=== PATIENT | female | born 1995 | race Caucasian/White ===

== ENCOUNTER 2024-01-05 19:48 | Emergency (ER) | payer MEDICAID ==
[~2024-01-05] VITALS: Ht 154.9 cm; Wt 113.4 kg
[2024-01-05 19:55] VITALS: BP 119/66; PULSE 90; RESP 17; TEMP 97.8; O2SAT 99
[2024-01-05 20:37] LABS: BASOPHILS % (AUTO) 0.4 % (0.0-2.0); EOSINOPHILS % (AUTO) 0.2 % (0.0-4.0); HEMOGLOBIN 12.8 g/dL (12.0-16.0); LYMPHOCYTES # (AUTO) 2.6 K/uL (2.5-16.5); LYMPHOCYTES % (AUTO) 28.1 % (20.5-51.1); MEAN CORPUSCULAR HEMOGLOBIN 31 pg (27-31); MEAN CORPUSCULAR HGB CONC 34 g/dL (33-37); MEAN CORPUSCULAR VOLUME 92.4 fL (80-94); MONOCYTES # (AUTO) 0.5 K/uL (0.8-1.0); MONOCYTES % (AUTO) 5.3 % (1.7-9.3); PLATELET COUNT (AUTO) 327 K/uL (140-450); RED BLOOD CELL COUNT(AUTO) 4.12 MIL/uL (4.20-5.40); RED CELL DISTRIBUTION WIDTH 12.6 % (11.6-13.7); WHITE BLOOD COUNT (AUTO) 9.1 K/uL (4.8-10.8)
[2024-01-05 20:50] VITALS: O2SAT 98
[2024-01-05 20:56] LABS: POTASSIUM 4.5 mmol/L (3.5-5.1)
[2024-01-05 20:57] LABS: ANION GAP 11.9 (8-16); CALCIUM 8.6 mg/dL (8.5-10.1); CARBON DIOXIDE 25.6 mmol/L (21-32); CREATININE 0.6 mg/dL (0.6-1.3)
[2024-01-05 20:58] LABS: BILIRUBIN,DIRECT 0.1 mg/dL (0.0-0.3); TOTAL BILIRUBIN 0.4 mg/dL (0.0-1.0)
[2024-01-05 20:59] LABS: ALBUMIN 3.9 g/dL (3.4-5.0); TOTAL PROTEIN, SERUM 7.6 g/dL (6.4-8.2)
[2024-01-05 21:17] LABS: APPEARANCE,URINE CLEAR (CLEAR); BILIRUBIN,URINE NEGATIVE (NEGATIVE); BLOOD, URINE NEGATIVE (NEGATIVE); COLOR,URINE YELLOW (YELLOW); LEUKOCYTE ESTERASE ,URINE NEGATIVE (NEGATIVE); NITRITE, URINE NEGATIVE (NEGATIVE); PROTEIN,URINE NEGATIVE (NEGATIVE); UGLUCOSE NEGATIVE (NEGATIVE); UROBILINOGEN,URINE 0.2 EU/dL (0.2 - 1)
[2024-01-05] MEDS: NACL 0.9% 1,000 ML IV ONE (21:59)
[2024-01-05 22:00] VITALS: BP 120/85; PULSE 96; RESP 17; TEMP 97.8
[2024-01-05] MEDS: ONDANSETRON 4 MG/2 ML VIAL IVP ONE (22:00)
[2024-01-05] MEDS: DICYCLOMINE HCL LIQUID 10 MG/5 ML UDC PO ONE (22:07)
[2024-01-05] MEDS: MORPHINE SULFATE 4 MG/ML SYR IVP ONE (22:07)
[2024-01-05 23:35] VITALS: O2SAT 98
[2024-01-06] MEDS: HYDROcodone/APAP 5/325 MG 1 TAB TAB PO ONE (00:03)
== END 2024-01-06 00:06 | disposition home or self-care (01) ==
LOC: MED 19:48
DX: G89.29 Other chronic pain (principal); R10.32 Left lower quadrant pain; R11.2 Nausea with vomiting, unspecified; Z90.49 Acquired absence of other specified parts of digestive tract
CPT/HCPCS: 36415; 74176; 80048; 80076; 81003; 81025; 83690; 85025; 96361; 96374; 96375; 99285; J2270; J2405

== ENCOUNTER 2024-01-12 20:54 | Emergency (ER) | payer MEDICAID ==
[~2024-01-12] VITALS: Ht 154.9 cm; Wt 99.8 kg
[2024-01-12 21:23] VITALS: BP 126/77; PULSE 119; RESP 18; TEMP 98.4; O2SAT 99
[2024-01-12 21:57] VITALS: O2SAT 95
[2024-01-12 22:05] VITALS: BP 117/76; PULSE 120; RESP 20; TEMP 98.4; O2SAT 95
[2024-01-12] MEDS ORDERED: FAMO-92 PO (22:47)
== END 2024-01-12 22:55 | disposition home or self-care (01) ==
LOC: MED 20:54
DX: K29.70 Gastritis, unspecified, without bleeding (principal); Z90.49 Acquired absence of other specified parts of digestive tract; Z79.899 Other long term (current) drug therapy
CPT/HCPCS: 81002; 81025; 99282

== ENCOUNTER 2024-04-18 16:27 | Emergency (ER) | payer MEDICAID ==
[~2024-04-18] VITALS: Ht 154.9 cm; Wt 95.0 kg
[~2024-04-18 16:27] MED LIST: FAMO-92 PO
[2024-04-18 16:33] VITALS: BP 110/71; PULSE 99; RESP 16; TEMP 97.6; O2SAT 96
[2024-04-18 17:08] LABS: APPEARANCE,URINE CLEAR (CLEAR); BILIRUBIN,URINE NEGATIVE (NEGATIVE); BLOOD, URINE NEGATIVE (NEGATIVE); COLOR,URINE YELLOW (YELLOW); LEUKOCYTE ESTERASE ,URINE NEGATIVE (NEGATIVE); NITRITE, URINE NEGATIVE (NEGATIVE); UGLUCOSE NEGATIVE (NEGATIVE); UROBILINOGEN,URINE 0.2 EU/dL (0.2 - 1)
[2024-04-18 17:13] LABS: PROTEIN,URINE NEGATIVE (NEGATIVE)
[2024-04-18 17:21] LABS: BASOPHILS % (AUTO) 0.2 % (0.0-2.0); EOSINOPHILS % (AUTO) 0.2 % (0.0-4.0); HEMATOCRIT 33.4 % (36-48); LYMPHOCYTES # (AUTO) 1.6 K/uL (2.5-16.5); LYMPHOCYTES % (AUTO) 19.3 % (20.5-51.1); MEAN CORPUSCULAR HEMOGLOBIN 30 pg (27-31); MEAN CORPUSCULAR HGB CONC 33 g/dL (33-37); MEAN CORPUSCULAR VOLUME 91.2 fL (80-94); MONOCYTES # (AUTO) 0.4 K/uL (0.8-1.0); MONOCYTES % (AUTO) 4.9 % (1.7-9.3); NEUTROPHILS # (AUTO) 6.2 K/uL (1.8-7.7); NEUTROPHILS % (AUTO) 75.4 % (42.2-75.2); PLATELET COUNT (AUTO) 277 K/uL (140-450); RED BLOOD CELL COUNT(AUTO) 3.66 MIL/uL (4.20-5.40); RED CELL DISTRIBUTION WIDTH 13.2 % (11.6-13.7); WHITE BLOOD COUNT (AUTO) 8.2 K/uL (4.8-10.8)
[2024-04-18] MEDS: ONDANSETRON 4 MG/2 ML VIAL IVP ONE (17:21)
[2024-04-18] MEDS: KETOROLAC 30 MG/ML VIAL IVP ONE (17:21)
[2024-04-18] MEDS: NACL 0.9% 1,000 ML IV SCH (17:22)
[2024-04-18 17:30] LABS: ANION GAP 12.3 (8-16); CALCIUM 8.4 mg/dL (8.5-10.1); CARBON DIOXIDE 25.5 mmol/L (21-32); CREATININE 0.6 mg/dL (0.6-1.3); POTASSIUM 3.8 mmol/L (3.5-5.1)
[2024-04-18 17:36] LABS: ALBUMIN 3.2 g/dL (3.4-5.0); BILIRUBIN,DIRECT 0.1 mg/dL (0.0-0.3); TOTAL BILIRUBIN 0.2 mg/dL (0.0-1.0); TOTAL PROTEIN, SERUM 6.4 g/dL (6.4-8.2)
[2024-04-18] MEDS: MORPHINE SULFATE 4 MG/ML SYR IVP ONE (17:49)
[2024-04-18] MEDS ORDERED: ONDA8TAB87 PO (18:46)
[2024-04-18] MEDS ORDERED: IBUP-2213 PO (18:46)
[2024-04-18] MEDS ORDERED: ACET-8905 PO (18:46)
[2024-04-18 19:06] VITALS: BP 110/71; PULSE 99; RESP 16; TEMP 97.6; O2SAT 96
== END 2024-04-18 19:05 | disposition home or self-care (01) ==
LOC: MED 16:27
DX: R10.31 Right lower quadrant pain (principal); R11.2 Nausea with vomiting, unspecified; R19.7 Diarrhea, unspecified; Z90.49 Acquired absence of other specified parts of digestive tract; Z98.890 Other specified postprocedural states; Z79.899 Other long term (current) drug therapy
CPT/HCPCS: 36415; 74176; 80048; 80076; 81003; 81025; 83690; 85025; 96361; 96374; 96375; 99285; J1885; J2270; J2405; J7030

== ENCOUNTER 2024-04-30 15:12 | Emergency (ER) | payer MEDICAID ==
[~2024-04-30] VITALS: Ht 154.9 cm; Wt 93.0 kg
[~2024-04-30 15:12] MED LIST changes: +ACET-8905 PO; +IBUP-2213 PO; +ONDA8TAB87 PO
[2024-04-30 15:43] VITALS: BP 94/63; PULSE 104; RESP 19; TEMP 98.1; O2SAT 97
--- NOTE | 2024-04-30 16:59 | NUR ---
PT WHEELED TO BED 09 FROM ULTRASOUND
[2024-04-30 17:00] VITALS: O2SAT 97
[2024-04-30] MEDS: ONDANSETRON 4 MG/2 ML VIAL IVP ONE (17:15)
[2024-04-30] MEDS: METOCLOPRAMIDE 10 MG/2 ML INJ VIAL IVP ONE (17:16)
[2024-04-30] MEDS: NACL 0.9% 1,000 ML IV ONE (17:19)
[2024-04-30] MEDS: ACETAMINOPHEN EXTRA STRENGTH 500 MG TAB PO ONE (17:20)
[2024-04-30 17:31] LABS: APPEARANCE,URINE CLEAR (CLEAR); BILIRUBIN,URINE NEGATIVE (NEGATIVE); BLOOD, URINE NEGATIVE (NEGATIVE); COLOR,URINE YELLOW (YELLOW); LEUKOCYTE ESTERASE ,URINE NEGATIVE (NEGATIVE); NITRITE, URINE NEGATIVE (NEGATIVE); PROTEIN,URINE NEGATIVE (NEGATIVE); UGLUCOSE NEGATIVE (NEGATIVE); UROBILINOGEN,URINE 0.2 EU/dL (0.2 - 1)
[2024-04-30 17:34] LABS: BASOPHILS % (AUTO) 0.3 % (0.0-2.0); EOSINOPHILS % (AUTO) 0.4 % (0.0-4.0); HEMATOCRIT 35.1 % (36-48); HEMOGLOBIN 11.4 g/dL (12.0-16.0); LYMPHOCYTES # (AUTO) 1.8 K/uL (2.5-16.5); LYMPHOCYTES % (AUTO) 27.8 % (20.5-51.1); MEAN CORPUSCULAR HEMOGLOBIN 30 pg (27-31); MEAN CORPUSCULAR HGB CONC 32 g/dL (33-37); MEAN CORPUSCULAR VOLUME 92.3 fL (80-94); MONOCYTES # (AUTO) 0.3 K/uL (0.8-1.0); MONOCYTES % (AUTO) 4.8 % (1.7-9.3); NEUTROPHILS # (AUTO) 4.4 K/uL (1.8-7.7); NEUTROPHILS % (AUTO) 66.7 % (42.2-75.2); PLATELET COUNT (AUTO) 273 K/uL (140-450); RED CELL DISTRIBUTION WIDTH 13.9 % (11.6-13.7); WHITE BLOOD COUNT (AUTO) 6.5 K/uL (4.8-10.8)
--- NOTE | 2024-04-30 17:39 | NUR ---
Patient does not wish to proceed with medical care recommended by DR. WARD. Patient given information related to possible complications, up to and including , which could occur as a result of leaving hospital at this time. Patient verbalizes understanding of risks involved leaving against medical advice. Patient has signed AMA form.
[2024-04-30 18:14] LABS: BACTERIA,URINE 2+ /HPF (None Seen); RBC,URINE 0-5 /HPF (0-5)
[2024-04-30 18:15] LABS: MUCUS,URINE 1+ /LPF (None Seen); SQUAMOUS EPITHELIAL CELL,UR 0-3 (FEW) /LPF (0-3 (FEW))
[2024-04-30 18:20] LABS: ALBUMIN 3.5 g/dL (3.4-5.0); ANION GAP 15.5 (8-16); CALCIUM 8.8 mg/dL (8.5-10.1); CARBON DIOXIDE 23.8 mmol/L (21-32); CREATININE 0.6 mg/dL (0.6-1.3); POTASSIUM 4.3 mmol/L (3.5-5.1); TOTAL BILIRUBIN 0.3 mg/dL (0.0-1.0); TOTAL PROTEIN, SERUM 7.1 g/dL (6.4-8.2)
== END 2024-04-30 17:39 | disposition left against medical advice (07) ==
LOC: MED 15:12
DX: R10.31 Right lower quadrant pain (principal); R11.0 Nausea; R19.7 Diarrhea, unspecified; Z90.49 Acquired absence of other specified parts of digestive tract; Z79.899 Other long term (current) drug therapy
CPT/HCPCS: 36415; 76856; 80053; 81001; 81025; 85025; 87086; 93976; 96374; 99285; J2765; J7030; J2405